=== PATIENT | male | born 1970 | race Caucasian/White ===

== ENCOUNTER 2022-03-05 13:49 | Outpatient (CLI) | payer OTHER, SELFPAY ==
[2022-03-05 20:18] LABS: Chloride* 104 mmol/L (96-114); Potassium* 4.1 mmol/L (3.6-5.1); Sodium* 139 mmol/L (135-149)
[2022-03-05 20:20] LABS: Aspartate Amino Transferase* 35 U/L (12-35); Bilirubin Total* 0.5 mg/dL (0.1-1.5); Carbon Dioxide* 23 mmol/L (20-32); Creatinine* 0.8 mg/dL (0.5-1.5); Estimated Glomerular Filt Rate 106 ml/min; Total Protein* 7.9 g/dL (6.0-8.3)
[2022-03-05 20:21] LABS: Alanine Aminotransferase* 43 U/L (4-50); Alkaline Phosphatase* 81 U/L (40-150); Blood Urea Nitrogen* 13 mg/dL (7-30); Calcium* 9.9 mg/dL (8.4-10.6); Glucose* 169 mg/dL (60-115)
== END 2022-03-05 13:50 | disposition home or self-care (01) ==
PROVIDERS: Visit Provider Family Medicine
DX: R53.83 Other fatigue (principal)
CPT/HCPCS: 80053; 84443

== ENCOUNTER 2022-09-20 11:20 | Outpatient (CLI) | payer OTHER, SELFPAY | END 2022-09-20 11:21 | disposition home or self-care (01) | LOC: NFLDREF 09-23 10:50 | PROVIDERS: Visit Provider Family Medicine | DX: Z00.00 Encounter for general adult medical examination without abnormal findings (principal); N52.9 Male erectile dysfunction, unspecified; R73.9 Hyperglycemia, unspecified; C18.9 Malignant neoplasm of colon, unspecified | CPT/HCPCS: 80053; 80061; 82378; 84153 ==

== ENCOUNTER 2022-11-14 11:48 | Outpatient (CLI) | payer OTHER, SELFPAY | END 2022-11-14 11:49 | disposition home or self-care (01) | LOC: NFLDREF 11-20 12:28 | PROVIDERS: Visit Provider Family Medicine | DX: R53.83 Other fatigue (principal) | CPT/HCPCS: 82525 ==

== ENCOUNTER 2023-03-01 13:07 | Outpatient (CLI) | payer OTHER, SELFPAY ==
[2023-03-01 18:06] LABS: Chlamydia DNA Amplified* NOT DETECTED (No Detected); GC DNA Amplified* NOT DETECTED (No Detected)
== END 2023-03-01 13:08 | disposition home or self-care (01) ==
PROVIDERS: Visit Provider Registered Nurse
DX: R21 Rash and other nonspecific skin eruption (principal)
CPT/HCPCS: 87491; 87529; 87591

== ENCOUNTER 2023-06-15 15:19 | Emergency (ER) | payer OTHER, SELFPAY ==
[2023-06-15 15:25] VITALS: BP 136/82; PULSE 88; RESP 16; TEMP 37.1; O2SAT 97; BMI 29.6
[2023-06-15 15:31] LABS: Appearance Urine Clear (Clear); Bilirubin Urine Negative (Negative); Blood Urine Negative (Negative); Color Urine Yellow (Yellow); Glucose Urine Negative (Negative); Ketones Urine Negative (Negative); Leukocyte Esterase Urine Negative (Negative); Nitrite Urine Negative (Negative); Protein Urine Negative (Negative); Specific Gravity Urine >= 1.030 (1.000-1.030); Urobilinogen Urine 0.2 (0.2-1.0); pH Urine 5.5 (5.0-8.5)
[2023-06-15 15:44] LABS: RBC Urine 0-2 (0-2); WBC Urine 0-2 (0-5)
[2023-06-15 15:45] LABS: Bacteria Urine Few; Other Sediment Urine Few
[2023-06-15 15:46] LABS: Coarse Granular Casts Urine Few
--- NOTE | 2023-06-15 16:06 | ED_ITS ---
HPI - General Adult General Chief complaint: Flank Pain Stated complaint: possible kidney infection Time Seen by Provider: 06/15/23 15:24 History of Present Illness HPI narrative: This 53-year-old male comes in reporting bilateral flank discomfort over the past few days. Prior to this you had some non specific abdominal symptoms but did not have any constant pain. He wonders if he might have a urinary tract infection but denies having any symptoms of dysuria. He arrives here with normal vital signs. He does not report any history of kidney stones. He states that he has had an occasional cough but does not report any shortness of breath. Related Data Home Medications Medication Instructions Recorded Confirmed naltrexone 50 mg tablet 4.5 mg PO QDAY 09/28/21 03/01/23 Previous Rx's Medication Instructions Recorded ketorolac 10 mg tablet 10 mg PO Q8H 5 days #15 tabs 06/15/23 Allergies Allergy/AdvReac Type Severity Reaction Status Date / Time No Known Drug Allergies Allergy Verified 06/15/23 15:27 Review of Systems Status of ROS: Reports: 10 or more systems reviewed and unremarkable except as noted in History and below Narrative: Constitutional: No fevers, no weight gain or loss. Eyes: No discharge. No vision changes. HENT: No congestion, no sore throat, no ear pain. Cardiovascular: No chest pain, no palpitations. Respiratory: No shortness of breath, no wheezes, no cough. Gastrointestinal: No abdominal pain, no vomiting, no diarrhea. Genitourinary: No dysuria, no hematuria. Musculoskeletal: Normal range of motion. Bilateral flank pain. Skin: No rashes, no pruritis. Neurological: No dizziness, weakness, sensory change, speech change. Endo/Heme/Allergies: No bruising or bleeding. No polydipsia. Pysch: no suicidality, no anxiety, no insomnia. All other systems reviewed and are negative. [facility] Medical History (Updated 06/15/23 @ 16:27 by Parth Man MD) Encounter for screening examination for sexually transmitted disease ?Z11.3 - Encounter for screening for infections with a predominantly sexual mode of transmission (ICD-10) Surgical History (Updated 08/22/22 @ 09:28 by Brenda Jacobsen ~ PSR) History of vasectomy ?Z98.52 - Vasectomy status (ICD-10) History of tonsillectomy ?Z90.89 - Acquired absence of other organs (ICD-10) History of straightening of nasal septum ?Z98.890 - Other specified postprocedural states (ICD-10) Family History (Updated 08/22/22 @ 09:37 by Brenda Jacobsen ~ PSR) Sister Breast cancer Father Coronary artery disease Diabetes Maternal Grandfather Stroke Maternal Grandmother Ovarian cancer Brother Prostate cancer Paternal Grandmother Diabetes Social History (Updated 08/22/22 @ 09:39 by Brenda Jacobsen ~ PSR) Narrative: 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 HEENT: Normocephalic, atraumatic. Neck: Normal range of motion. Nontender. Supple. Heart: Regular. No murmurs. Normal rate. Intact distal pulses. Lungs: Clear to auscultation. No chest discomfort. No wheezes, rhonchi, or rales. Abdomen: Normal bowel sounds. Nontender. No rebound tenderness. Genitalia: Deferred. Back: No midline tenderness. Normal range of motion. No tenderness when palpating over the flank region bilaterally. Extremities: Normal range of motion. No injury. Skin: Intact. No rash. Warm. No erythema or pallor. Neurologic: No altered sensation. No weakness. Alert and oriented. Psychiatric: No suicidality. No anxiety or depression. No insomnia. Nursing notes and vitals signs are reviewed. Const: Vital Signs, click to edit/add: Vital Signs - 24 hr 06/15/23 15:25 Temperature 98.7 F Pulse Rate [Right Pulse Oximeter] 88 Respiratory Rate 16 Blood Pressure [Ri ght Upper Arm] 136/82 Pulse Oximetry 97 Oxygen Delivery Me thod Room Air Course Vital Signs Vital signs: Initial Vital Signs Temperature 98.7 F 06/15/23 15:25 Temperature Source Temporal Artery Scan 06/15/23 15:25 Pulse Rate 88 06/15/23 15:25 Pulse Rhythm Regular 06/15/23 15:25 Pulse Strength 3+ Normal 06/15/23 15:25 Respiratory Rate 16 06/15/23 15:25 Blood Pressure 136/82 06/15/23 15:25 Blood Pressure Mean 100 06/15/23 15:25 Blood Pressure Position Sitting 06/15/23 15:25 Pulse Oximetry 97 06/15/23 15:25 Oxygen Delivery Method Room Air 06/15/23 15:25 Vital Signs Temperature 98.7 F 06/15/23 15:25 Pulse Rate 88 06/15/23 15:25 Respiratory Rate 16 06/15/23 15:25 Blood Pressure 136/82 06/15/23 15:25 Pulse Oximetry 97 06/15/23 15:25 Oxygen Delivery Method Room Air 06/15/23 15:25 Temperature 98.7 F 06/15/23 15:25 Pulse Rate 88 06/15/23 15:25 Respiratory Rate 16 06/15/23 15:25 Blood Pressure 136/82 06/15/23 15:25 Pulse Oximetry 97 06/15/23 15:25 Oxygen Delivery Method Room Air 06/15/23 15:25 Medical Decision Making MDM Narrative Medical decision making narrative: This patient comes in reporting some flank pain bilaterally over the past few days. He is concerned that he may have a urinary tract infection. Urinalysis is obtained and shows no such sign of infection or microscopic hematuria. His exam is otherwise reassuring. He does not have any abdominal pain currently and there is no sign of abnormal bowel sounds or rebound tenderness. I did discuss some other options for diagnosis including CT imaging and labs. In a process of shared decision making these were declined. 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 He did receive a prescription for Toradol. Lab Data Labs: Lab Results 06/15/23 Range/Units 15:23 Urine Color Yellow (Yellow) Urine Appearance Clear (Clear) Urine pH 5.5 (5.0-8.5) Ur Specific [place] >= 1.030 (1.000-1.030) Urine Protein Negative (Negative) Urine Glucose (UA) Negative (Negative) Urine Ketones Negative (Negative) Urine Blood Negative (Negative) Urine Nitrite Negative (Negative) Urine Bilirubin Negative (Negative) Urine Urobilinogen 0.2 (0.2-1.0) Ur Leukocyte Esterase Negative (Negative) Urine RBC 0-2 (0-2) Urine WBC 0-2 (0-5) Ur Squamous Epith Cells None (None-Few) Other Sediment Few A (None) Urine Bacteria Few A (None) Coarse Granular Casts Few A (None) Discharge Plan Discharge Clinical Impression: Acute flank pain Patient Disposition: Home, Self-Care Condition: Stable Additional Instructions: Take medication as needed and indicated. Okay to return to work with activity as tolerated. Follow up with MD return if worsening. Prescriptions: New ketorolac 10 mg tablet 10 mg PO Q8H 5 Days Qty: 15 0RF No Action naltrexone 50 mg tablet 4.5 mg PO QDAY Follow Up/Referrals: Provider,Not a Local [Referring] - Stand Alone Forms: [employer] Info Instructions
--- NOTE | 2023-06-15 16:32 | ED_ITS ---
HPI - Eye Problem General Chief complaint: Flank Pain Stated complaint: possible kidney infection Time Seen by Provider: 06/15/23 15:24 History of Present Illness HPI Narrative: This 53-year-old male comes in reporting Related Data Home Medications Medication Instructions Recorded Confirmed naltrexone 50 mg tablet 4.5 mg PO QDAY 09/28/21 03/01/23 Previous Rx's Medication Instructions Recorded ketorolac 10 mg tablet 10 mg PO Q8H 5 days #15 tabs 06/15/23 Allergies Allergy/AdvReac Type Severity Reaction Status Date / Time No Known Drug Allergies Allergy Verified 06/15/23 15:27 Review of Systems Status of ROS: Reports: 10 or more systems reviewed and unremarkable except as noted in History and below Narrative: Constitutional: No fevers, no weight gain or loss. Eyes: No vision changes. HENT: No congestion, no sore throat, no ear pain. Cardiovascular: No chest pain, no palpitations. Respiratory: No shortness of breath, no wheezes, no cough. Gastrointestinal: No abdominal pain, no vomiting, no diarrhea. Genitourinary: No dysuria, no hematuria. Musculoskeletal: Normal range of motion. Skin: No rashes, no pruritis. Neurological: No dizziness, weakness, sensory change, speech change. Endo/Heme/Allergies: No bruising or bleeding. No polydipsia. Pysch: no suicidality, no anxiety, no insomnia. All other systems reviewed and are negative. [facility] Medical History (Updated 06/15/23 @ 16:27 by Parth Man MD) Encounter for screening examination for sexually transmitted disease ?Z11.3 - Encounter for screening for infections with a predominantly sexual mode of transmission (ICD-10) Surgical History (Updated 08/22/22 @ 09:28 by Brenda Jacobsen ~ PSR) History of vasectomy ?Z98.52 - Vasectomy status (ICD-10) History of tonsillectomy ?Z90.89 - Acquired absence of other organs (ICD-10) History of straightening of nasal septum ?Z98.890 - Other specified postprocedural states (ICD-10) Family History (Updated 08/22/22 @ 09:37 by Brenda Jacobsen ~ PSR) Sister Breast cancer Father Coronary artery disease Diabetes Maternal Grandfather Stroke Maternal Grandmother Ovarian cancer Brother Prostate cancer Paternal Grandmother Diabetes Social History (Updated 08/22/22 @ 09:39 by Brenda Jacobsen ~ PSR) Narrative: 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 HEENT: Normocephalic, atraumatic. Neck: Normal range of motion. Nontender. Supple. Heart: Regular. No murmurs. Normal rate. Intact distal pulses. Lungs: Clear to auscultation. No chest discomfort. No wheezes, rhonchi, or rales. Abdomen: Normal bowel sounds. Nontender. No rebound tenderness. Genitalia: Deferred. Back: No midline tenderness. Normal range of motion. Extremities: Normal range of motion. No injury. Skin: Intact. No rash. Warm. No erythema or pallor. Neurologic: No altered sensation. No weakness. Alert and oriented. Psychiatric: No suicidality. No anxiety or depression. No insomnia. Nursing notes and vitals signs are reviewed. Const: Vital Signs, click to edit/add: Vital Signs - 24 hr 06/15/23 15:25 Temperature 98.7 F Pulse Rate [Right Pulse Oximeter] 88 Respiratory Rate 16 Blood Pressure [Ri ght Upper Arm] 136/82 Pulse Oximetry 97 Oxygen Delivery Me thod Room Air Course Vital Signs Vital signs: Initial Vital Signs Temperature 98.7 F 06/15/23 15:25 Temperature Source Temporal Artery Scan 06/15/23 15:25 Pulse Rate 88 06/15/23 15:25 Pulse Rhythm Regular 06/15/23 15:25 Pulse Strength 3+ Normal 06/15/23 15:25 Respiratory Rate 16 06/15/23 15:25 Blood Pressure 136/82 06/15/23 15:25 Blood Pressure Mean 100 06/15/23 15:25 Blood Pressure Position Sitting 06/15/23 15:25 Pulse Oximetry 97 06/15/23 15:25 Oxygen Delivery Method Room Air 06/15/23 15:25 Vital Signs Temperature 98.7 F 06/15/23 15:25 Pulse Rate 88 06/15/23 15:25 Respiratory Rate 16 06/15/23 15:25 Blood Pressure 136/82 06/15/23 15:25 Pulse Oximetry 97 06/15/23 15:25 Oxygen Delivery Method Room Air 06/15/23 15:25 Temperature 98.7 F 06/15/23 15:25 Pulse Rate 88 06/15/23 15:25 Respiratory Rate 16 06/15/23 15:25 Blood Pressure 136/82 06/15/23 15:25 Pulse Oximetry 97 06/15/23 15:25 Oxygen Delivery Method Room Air 06/15/23 15:25 MDM - Eye Problem Lab Data Labs: Lab Results 06/15/23 Range/Units 15:23 Urine Color Yellow (Yellow) Urine Appearance Clear (Clear) Urine pH 5.5 (5.0-8.5) Ur Specific [place] >= 1.030 (1.000-1.030) Urine Protein Negative (Negative) Urine Glucose (UA) Negative (Negative) Urine Ketones Negative (Negative) Urine Blood Negative (Negative) Urine Nitrite Negative (Negative) Urine Bilirubin Negative (Negative) Urine Urobilinogen 0.2 (0.2-1.0) Ur Leukocyte Esterase Negative (Negative) Urine RBC 0-2 (0-2) Urine WBC 0-2 (0-5) Ur Squamous Epith Cells None (None-Few) Other Sediment Few A (None) Urine Bacteria Few A (None) Coarse Granular Casts Few A (None) Discharge Plan Discharge Clinical Impression: Acute flank pain Patient Disposition: Home, Self-Care Condition: Stable Additional Instructions: Take medication as needed and indicated. Okay to return to work with activity as tolerated. Follow up with MD return if worsening. Prescriptions: New ketorolac 10 mg tablet 10 mg PO Q8H 5 Days Qty: 15 0RF No Action naltrexone 50 mg tablet 4.5 mg PO QDAY Follow Up/Referrals: Provider,Not a Local [Referring] - Stand Alone Forms: [employer] Info Instructions
[2023-06-15 16:39] LABS: PCR FLU A Negative PCR FLU A (Negative); PCR FLU B Negative PCR FLU B (Negative); PCR RSV Negative PCR RSV (Negative); SARS PCR* Negative SARS-CoV-2 (Negative)
== END 2023-06-15 16:44 | disposition home or self-care (01) ==
PROVIDERS: Emergency Provider Emergency Medicine Emergency Medical Services; PCP Family Medicine
DX: R10.9 Unspecified abdominal pain (principal)
CPT/HCPCS: 81001; 87086; 87631; 99283; 99284

== ENCOUNTER 2023-10-14 17:06 | Emergency (ER) | payer OTHER, SELFPAY ==
[2023-10-14 17:10] VITALS: BP 154/95; PULSE 81; RESP 16; TEMP -13.8; TEMP 7.2; O2SAT 97; BMI 29.8
--- NOTE | 2023-10-14 17:59 | ED_ITS ---
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 He was at at a concert with his children 2 nights ago. He was near the front of the audience. Other audience members were doing ?stage dives? off the stage. One of these people jumped without warning off the stage and landed with the individuals hip striking on the top of the patient's right head. He also suffered a boot injury into his face. The patient was not knocked out. Initially did notice any symptoms. No amnesia. No blurry vision. No nausea or vomiting. Since then he has had mild cognitive fogginess, feeling a little bit unwell and says that he feels, ?concussed. ?. He has also had mild ache in his bilateral trapezius muscles, in his midthoracic spine and a little bit in his low back. No numbness or weakness or tingling down his arms or legs. No other injury. He did not have any nose bleed or facial bruising or swelling. He has had some mild achiness in his teeth but that is getting better. 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 He went to a local urgent care to be seen there. He was referred by the urgent care provider to the ER because the urgent care felt that he needed a head CT to rule out intracranial bleeding. The patient says his symptoms are not that severe any questions the true necessity of the head CT. The patient has had previous concussion years ago that actually was more intense that his current symptoms.. Related Data Home Medications ?Medication ?Instructions ?Recorded ?Confirmed naltrexone 50 mg tablet 4.5 mg PO QDAY 09/28/21 09/15/23 thyroid (pork) 60 mg tablet 60 mg PO QAM 10/14/23 10/14/23 ([place] Thyroid) Previous Rx's ?Medication ?Instructions ?Recorded cyclobenzaprine 10 mg tablet 10 mg PO TID PRN muscle spasm #7 10/14/23 tabs Allergies Allergy/AdvReac Type Severity Reaction Status Date / Time No Known Drug Allergies Allergy Verified 09/15/23 16:00 [facility] Medical History (Updated 10/14/23 @ 18:25 by Babak Arrieta MD) Encounter for screening examination for sexually transmitted disease ?Z11.3 - Encounter for screening for infections with a predominantly sexual mode of transmission (ICD-10) Surgical History (Updated 08/22/22 @ 09:28 by Brenda Jacobsen ~ PSR) History of vasectomy ?Z98.52 - Vasectomy status (ICD-10) History of tonsillectomy ?Z90.89 - Acquired absence of other organs (ICD-10) History of straightening of nasal septum ?Z98.890 - Other specified postprocedural states (ICD-10) Family History (Updated 08/22/22 @ 09:37 by Brenda Jacobsen ~ PSR) Sister Breast cancer Father Coronary artery disease Diabetes Maternal Grandfather Stroke Maternal Grandmother Ovarian cancer Brother Prostate cancer Paternal Grandmother Diabetes Social History (Updated 08/22/22 @ 09:39 by Brenda Jacobsen ~ PSR) Narrative: Single, 2 kids, 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 Alert. Conversant. Non toxic. HENT: Head: Atraumatic. No depressed skull fracture, Raccoon Eyes, Wilde's sign, or hemotympanum. Face normal. TMs normal Nose: Nose normal. Mouth/Throat: Oral mucosa is clear and moist. no trismus. Pharynx normal. Tonsils symmetric. No tonsillar enlargement, erythema, or exudate. Eyes: Conjunctivae normal. EOM normal. Pupils equal, round, and reactive to light. No scleral icterus. Neck: Normal range of motion. Neck supple. No tracheal deviation present. Cardiovascular: Normal rate, regular rhythm. No gallop. No friction rub. No murmur heard. Symmetric radial artery pulses Pulmonary/Chest: Effort normal. No stridor. No respiratory distress. No wheezes. No rales. No rhonchi . No tenderness. Abdominal: Soft. No distension. No mass. No tenderness. No rebound. No guarding. Musculoskeletal: As mild achiness bilaterally in the tops of his trapezius muscles in the shoulders. No midline cervical spine tenderness or step-off. Normal lateral rotation and flexion/extension of his neck. Also has some mild achiness in his mid thoracic back without any midline point tenderness or step-off. No lumbar spine midline tenderness. RUE: Normal range of motion. No tenderness. No deformity LUE: Normal range of motion. No tenderness. No deformity RLE: Normal range of motion. No edema. No tenderness. No deformity LLE: Normal range of motion. No edema. No tenderness. No deformit Neurological: Mental status normal. Attention normal. Alert and oriented x3. GCS 15. Memory normal. Speech fluent. Cognition normal. Cranial Nerves intact II-XII except I did not formally test gag or visual acuity. EOMI. Palate elevates symmetrically and tongue protrudes in the midline. Strength: 5/5 trapezius on the right and left 5/5 deltoid on the right and left 5/5 biceps on the right and left 5/5 triceps on the right and left 5/5 assistant department manager on the right and left 5/5 thumb opposition on the right and le ft 5/5 finger abduction on the right and le ft 5/5 hip flexors (L3) on the right and le ft 5/5 quadriceps (L4) on the right and lef t 5/5 tibialis anterior on the right and l eft 5/5 EHL (L5) on the right and left 5/5 gastrocnemius (S1) on the right and left 5/5 hamstring on the right and left Sensation intact to light touch in both upper extremities (C4-T1) Sensation intact to light touch in Both lower extremities (L4-S1). Finger to nose and coordination normal. Gait normal. Skin: Skin is warm and dry. No rash noted. No pallor. Normal capillary refill. Psychiatric: Normal mood. Normal affect. Const: Vital Signs, click to edit/add: Vital Signs - 24 hr 08/13/24 17:10 Temperature 7.2 F L Pulse Rate [Pulse Oximeter] 81 Respiratory Rate 16 Blood Pressure [Ri ght Upper Arm] 154/95 H Pulse Oximetry 97 Oxygen Delivery Me thod Room Air Course Vital Signs Vital signs: Initial Vital Signs Temperature 7.2 F L 10/14/23 17:10 Temperature Source Temporal Artery Scan 10/14/23 17:10 Pulse Rate 81 10/14/23 17:10 Respiratory Rate 16 10/14/23 17:10 Blood Pressure 154/95 H 10/14/23 17:10 Blood Pressure Mean 114 H 10/14/23 17:10 Blood Pressure Position Sitting 10/14/23 17:10 Pulse Oximetry 97 10/14/23 17:10 Oxygen Delivery Method Room Air 10/14/23 17:10 Vital Signs Temperature 7.2 F L 10/14/23 17:10 Pulse Rate 81 10/14/23 17:10 Respiratory Rate 16 10/14/23 17:10 Blood Pressure 154/95 H 10/14/23 17:10 Pulse Oximetry 97 10/14/23 17:10 Oxygen Delivery Method Room Air 10/14/23 17:10 Temperature 7.2 F L 10/14/23 17:10 Pulse Rate 81 10/14/23 17:10 Respiratory Rate 16 10/14/23 17:10 Blood Pressure 154/95 H 10/14/23 17:10 Pulse Oximetry 97 10/14/23 17:10 Oxygen Delivery Method Room Air 10/14/23 17:10 Medical Decision Making MDM Narrative Medical decision making narrative: This patient presents with a head injury that occurred 2 days ago. He does have mild symptoms of concussion including cognitive slowing and just not feeling right but does not really have a bad headache. The differential diagnosis includes skull fracture, epidural hematoma, subdural hematoma, intracerebral hemorrhage, and traumatic subarachnoid hemorrhage; all of these are highly unlikely in this clinical setting. This patient denies severe headache, seizure, and has no focal neurological findings. Patient did not have any seizure after the injury, and is not anticoagulated . The patient has a normal GCS. They have not had any significant vomiting. They have no sign of open or depressed skull fracture /basilar skull fracture. They are less than age 65. The patient did not have prolonged LOC, sleepiness, repeated emesis, poor orientation, or significant irritability. They are low risk by the [place] head CT rule. Because he was referred from Urgent Care, hearing the triage report from nurses, I went ahead to order CT scan head and C-spine to help expedite his ER through put. After my evaluation, we made a change in care plan. Although he was referred from the Urgent Care to the ER to get a CT today, the patient and I agree that at this point CT is not indicated. I have discussed the risk/benefit analysis with the patient and family regarding CT imaging. We have decided to hold off on this at this time. CT imaging was canceled With an axial load to his head also consider spine trauma such as cervical or thoracic spine. He does have mild achiness is in his neck but no midline tenderness. At this point he is not showing any signs of altered mental status, intoxication. He has no distracting orthopedic injury. Normal neurologic exam. I am able to clear his cervical spine clinically by nexus. The patient/family understand that they must return if any red flags appear/develop in the coming hours/days, as this may represent an indication to perform a CT scan. I have noted that red flags include: headaches that get worse, increased drowsiness, strange behavior, repetitive speech, seizures, repeated vomiting, growing confusion, increased irritability, slurred speech, weakness or numbness, and loss of responsiveness. This information will also be provided in writing at discharge. I have discussed the second impact syndrome, and the importance of not sustaining repeated concussion in the next 1-2 weeks. Post concussive syndrome is also discussed. The patient's questions were answered. He will use Tylenol or ibuprofen if needed to help with his shoulder ache and backache. We also decided to try little bit of muscle relaxer. He understands drowsiness is sedation precautions with that. 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 He says the rules for [employer] that he cannot fly for 60 hours after taking any sedating medications. this would include Flexeril. Discharge Plan Discharge Clinical Impression: Concussion, Back pain Patient Disposition: Home, Self-Care Condition: Stable Instructions: Concussion (ED) Additional Instructions: As we discussed, please avoid activities that may trigger more head injuries for the next 14 days. Light physical activity is okay unless it causes symptoms of worsening headache, fogginess, or worsening concussion symptoms. You can use Ty lenol or ibuprofen if needed for pain. Use the prescription muscle relaxer (Flexeril) if needed for uncontrolled pain and stiffness. Use caution with Flexeril because it causes drowsiness, dizziness, and impaired reflexes. If you have worsening headache, vomiting more than twice, numbness or weakness in your arm or leg, or other concerning symptoms, return to the ER right away to be rechecked If you are not completely improved within 5 days, please recheck with your regular doctor or come back to the ER for a recheck Prescriptions: New cyclobenzaprine 10 mg tablet 10 mg PO TID PRN (Reason: muscle spasm) Qty: 7 0RF No Action naltrexone 50 mg tablet 4.5 mg PO QDAY thyroid (pork) [[place] Thyroid] 60 mg tablet 60 mg PO QAM Follow Up/Referrals: Yonis Perdomo MD [Primary Care Provider] - Stand Alone Forms: [employer]potion Info Instructions
== END 2023-10-14 18:32 | disposition home or self-care (01) ==
LOC: ED 18:30
PROVIDERS: Emergency Provider Emergency Medicine; PCP Family Medicine
DX: S06.0X0A Concussion without loss of consciousness, initial encounter (principal); M54.9 Dorsalgia, unspecified
CPT/HCPCS: 99282; 99283

== ENCOUNTER 2024-08-06 11:03 | Outpatient (CLI) | payer OTHER, SELFPAY | END 2024-08-06 11:04 | disposition home or self-care (01) | PROVIDERS: PCP Family Medicine; Visit Provider Family Medicine | DX: E03.9 Hypothyroidism, unspecified (principal); R53.82 Chronic fatigue, unspecified; E78.5 Hyperlipidemia, unspecified; R73.9 Hyperglycemia, unspecified; C18.9 Malignant neoplasm of colon, unspecified; Z12.5 Encounter for screening for malignant neoplasm of prostate | CPT/HCPCS: 80048; 80061; 82378; 84439; 84443; 84480; G0103 ==